=== PATIENT | male | born 1980 | race Native Hawaiian/Other Pacific Islander ===

== ENCOUNTER 2018-02-19 12:50 | Emergency (ER) | payer OTHER ==
[~2018-02-19] VITALS: Ht 182.9 cm; Wt 108.9 kg
[2018-02-19 13:00] VITALS: TEMP 98.1
[2018-02-19 15:00] VITALS: BP 136/86
== END 2018-02-19 15:00 | disposition home or self-care (01) ==
LOC: ED 12:50
DX: M79.672 Pain in left foot (principal)
CPT/HCPCS: 96372; 99282; J1100

== ENCOUNTER 2022-03-12 16:42 | Emergency (ER) | payer OTHER ==
[~2022-03-12] VITALS: Ht 182.9 cm; Wt 113.4 kg
[2022-03-12 16:55] VITALS: BP 190/96; TEMP 97
== END 2022-03-12 18:02 | disposition home or self-care (01) ==
LOC: ED 16:42
DX: M79.18 Myalgia, other site (principal); X50.9XXA Other and unspecified overexertion or strenuous movements or postures, initial encounter; Y92.89 Other specified places as the place of occurrence of the external cause
CPT/HCPCS: 96372; 99283; J1885; J2360